=== PATIENT | female | born 1985 | race Caucasian/White ===

== ENCOUNTER 2016-09-16 04:22 | Emergency (ER) | payer OTHER ==
[~2016-09-16] VITALS: Ht 180.3 cm; Wt 70.3 kg
[~2016-09-16 04:22] MED LIST: CLARITIN10 MG PO; EFFEXOR XR75 MG PO; LOMOTIL 0.025 M1 TAB PO; OMNICEF300 MG PO; PRE NATAL PO; PRENATAL1 TA1 PO; SINGULAIR10 M1 PO; TRAMADOL HCL50 MG PO; ZANTAC150 MG PO; Zofran4 MG PO
[2016-09-16] MEDS ORDERED: ALLEGRA ALLERGY60 M2 PO (04:32)
[2016-09-16 04:51] LABS: BASO % 0.4 % (0.0-1.0); EOS # 0.1 10*3/uL (0.0-0.4); EOS % 0.8 % (1.0-4.0); HEMATOCRIT 41.9 % (37.0-47.0); HEMOGLOBIN 14.6 g/dl (12.0-16.0); LYMPH # 1.4 10*3/uL (1.3-4.4); MEAN CELL VOLUME 88.6 fl (81.0-99.0); MEAN CORPUSCULAR HGB 30.9 pg (27.0-31.0); MEAN CORPUSCULAR HGB CONC 34.8 g/dl (33.0-37.0); MEAN PLATELET VOLUME 9.6 fl (9.6-12.3); MONO # 0.4 10*3/uL (0.1-1.0); MONO % 4.7 % (3.0-9.0); NEUT # 7.3 10*3/uL (2.3-7.9); NEUT % 78.9 % (47.0-73.0); PLATELET COUNT AUTOMATED 177 10*3/uL (130-400); RED BLOOD COUNT 4.73 10*6/uL (4.10-5.10); RED CELL DISTRI WIDTH 11.9 % (0-14.5); WHITE BLOOD COUNT 9.2 10*3/uL (4.8-10.8)
[2016-09-16 05:06] LABS: ALBUMIN 4.2 gm/dl (3.1-4.5); ALKALINE PHOSPHATASE 64 U/L (45-117); BILIRUBIN, TOTAL 0.3 mg/dl (0.2-1.0); BUN 13 mg/dl (7-24); CARBON DIOXIDE 25 mmol/L (21-32); CHLORIDE 108 mmol/L (98-107); EST GLOM FILT AFRICAN AMERICAN > 60 ml/min; GLUCOSE 85 mg/dL (65-99); POTASSIUM 4.1 mmol/L (3.5-5.1); SGOT/AST 19 IU/L (3-35); SGPT/ALT 23 U/L (12-78); SODIUM 143 mmol/L (136-145); TOTAL PROTEIN 7.4 gm/dL (6.4-8.2)
[2016-09-16 05:25] LABS: BILIRUBIN NEGATIVE (NEGATIVE); BLOOD NEGATIVE (NEGATIVE); CLARITY CLEAR (CLEAR); COLOR YELLOW (YELLOW); GLUCOSE NEGATIVE (NEGATIVE); KETONE NEGATIVE (NEGATIVE); LEUKO ESTERASE NEGATIVE (NEGATIVE); NITRITE NEGATIVE (NEGATIVE); PH 6.5 (5.0-9.0); PROTEIN NEGATIVE (NEGATIVE); SPECIFIC GRAVITY 1.015 (1.005-1.030); UROBILINOGEN 0.2 E.U./dl (0.2-1.0)
[2016-09-16 06:02] LABS: RBC 0-2 rbc/hpf (0-2); URINE REFLEX COMMENT NO (NO); WBC 0-2 wbc/hpf (0-5)
[2016-09-16] MEDS ORDERED: Zofran4 MG PO (06:25)
== END 2016-09-16 06:42 | disposition home or self-care (01) ==
LOC: ED 04:22
PROVIDERS: Emergency Medicine
DX: K52.9 Noninfective gastroenteritis and colitis, unspecified (principal); Z91.030 Bee allergy status; Z79.899 Other long term (current) drug therapy

== ENCOUNTER 2016-09-17 00:08 | Inpatient (IN) | payer OTHER ==
[~2016-09-17] VITALS: Ht 182.8 cm; Wt 69.9 kg
--- NOTE | ~2016-09-17 | O ---
[place], [place] OPERATIVE NOTE [facility]: [id number] UN[facility] #: [id number] ROOM: 512 DOCTOR: LATOYA MARTE,MOY BIRTHDATE: [birth year] DOS: INDICATIONS: This is a 30-year-old patient who has presented nausea, vomiting undergoing investigation. The patient consultation has been in detail dictated. Labs and records have been reviewed. CT scan of the abdomen has been unremarkable. test has been negative. PROCEDURE: Today's procedure part of investigation is panendoscopy plus biopsy. PREMEDICATION: Versed and Diprivan. SCOPE: Olympus forward-viewing gastroscope Q10 video. REPORT: After putting the patient in the left lateral position and after application of lubricant to the scope, the scope was introduced; thereafter, under direct visualization, advanced through the length of esophagus without difficulty. Gastric pouch was entered. Gastritis was seen. Thick bilious matter in the copious volume in the gastric pouch was noticed. Meticulously all the bile was suctioned out to prevent aspiration. Duodenal bulb, second and third part within normal limits. Antrum was biopsied. The patient extubated, tolerated procedure well. IMPRESSION: Bile reflux gastritis. PLAN AND DISCUSSION: I am going to give her a dose of Reglan 5 mg b.i.d. today and we are going to continue with Protonix IV 40 mg b.i.d. I have reassessed the CT scan readings which has been without contrast, liver, spleen, pancreas and adrenal glands, kidneys all have been reported benign, gallbladder images is unremarkable. I am going to organize a sonographic study of the gallbladder again and clinical reassessment. Drug screening has been negative. Workup in progress. MOY KLEIN MD CM:OPRECORD:OPERATIVE NOTE [id number] MOY KLEIN MD 09/18/161953 interface
--- NOTE | ~2016-09-17 | CON ---
[place], [place] REPORT OF CONSULTATION NAME[facility]: [id number] UNIT #: [id number] ROOM: 512 DOCTOR: MOY KLEIN MD BIRTHDATE: [birth year] DOS: 09/18/2016 HISTORY OF PRESENT ILLNESS: A 30-year-old patient who has presented with chief complaint of relentless nausea, vomiting, unable to eat anything for the past 3 days or drink anything since 3 days ago. I have been asked for assessment of the patient regarding nausea, vomiting, relentless status. CBC: White blood cell was 9, H and H was 14 and 41, differential. Comprehensive metabolic panel, GFR greater than 60. Electrolytes balanced. Liver function test normal. Urinalysis unremarkable. CT scan of the abdomen and pelvis, no acute evidence of pathology. CBC, differential was reassessed. Comprehensive reassessed. Beta hCG negative. Comprehensive metabolic panel was reevaluated and thyroid status normal. Liver function tests remain normal. Phosphorus has dropped yesterday to 1.3. . PAST MEDICAL HISTORY: Associated with gastroenteritis, abdominal pain, intractable nausea, vomiting. PAST SURGICAL HISTORY: Otherwise, knee. SOCIAL HISTORY: Smoker, nonalcohol consumer. FAMILY HISTORY: Noncontributory. ALLERGIES: BEE STINGS. MEDICATIONS: List has been reviewed, Singulair, Zofran, Effexor, Carrie. REVIEW OF SYSTEMS: HEENT: Denies double vision, blurred vision. RESPIRATORY: Denies shortness of breath. CARDIOVASCULAR: Denies chest pain. DIGESTIVE SYSTEM: Relentless nausea, vomiting. PHYSICAL EXAMINATION: VITAL SIGNS: Stable. HEENT: Head normocephalic, nontraumatic. Eyes: Pupils round, reactive. Sclerae nonicteric. Conjunctivae pink. Nose: Nonobstructed, nondeviated. Mouth free of aphthae, ulcer, thrush. NECK: Supple, no thyromegaly, no cervical lymphadenopathy. CHEST: Symmetric anatomy, equal expansion. No wheeze. No rhonchi. HEART: Normal sinus rhythm, no gallop, no murmur. ABDOMEN: Soft. No hepato-organomegaly. Bowel sounds present. No pulsatile mass. EXTREMITIES: No cyanosis, no pedal edema. NEUROLOGIC: Alert, oriented to time, place and person. Labs reviewed. Records reviewed. X-rays reviewed. IMPRESSION: Relentless nausea, vomiting, depression, history of abdominal pain, hypophosphatemia, status post K-Phos infusion. [place], [place] REPORT OF CONSULTATION NAME: ALFONSO ALFREDO UNIT #: [id number] ROOM: [facility] DOCTOR: MOY KLEIN MD BIRTHDATE: [birth year] PLAN AND DISCUSSION: We are going to endoscopically assess the upper GI tract for ruling out the etiology of relentless nausea, vomiting. Thank you very much indeed. MOY KLEIN MD CM:CONSTR:REPORT OF CONSULTATION 1727 09/19/16 0842 interface
--- NOTE | ~2016-09-17 | O ---
[place], [place] OPERATIVE NOTE NAME: ALFONSO ALFREDO [facility] #: [id number] UNIT #: [id number] ROOM: 512 DOCTOR: JOHN LEONARD MD BIRTHDATE: [birth year] DOS: 09/22/2016 PREOPERATIVE DIAGNOSIS: Biliary dyskinesia. POSTOPERATIVE DIAGNOSIS: Biliary dyskinesia. PROCEDURE: Laparoscopic cholecystectomy. SURGEON: John Leonard MD RAW STOCK MACHINE LOADER: MS3. ANESTHESIA: General with endotracheal intubation. INDICATIONS: This is a 30-year-old lady with a history of epigastric pain, nausea and vomiting, who was found to have biliary dyskinesia on HIDA scan. It was decided to take the patient to the operating room for a laparoscopic possible open cholecystectomy. The procedure and its complications were explained to the patient in detail preoperatively. Complications that were discussed included but were not limited to bleeding, infection, hematoma/seroma/abscess formation, biloma formation, prolonged postoperative pain, damage to underlying vital structures, incisional hernia formation and injury to the common bile duct. She agreed to proceed. DESCRIPTION OF PROCEDURE: After identifying the patient, the patient was brought to the operating suite and laid in the supine position. After induction of general anesthesia, timeout procedure was called and the parts were then painted and draped in the usual sterile fashion. An incision in a subumbilical fashion was made in a transverse direction. The skin and the subcutaneous tissue were incised. The fascia was incised and 2 stay sutures were taken. The peritoneum was opened and a 12 mm Larry port was introduced. Under direct vision, an epigastric incision of 10 mm and two 5 mm incisions were made in the right upper quadrant and appropriate size ports were introduced. The gallbladder was retracted superiorly and laterally. The cystic duct and the cystic artery were carefully dissected until the critical view of safety was obtained and then triangle of Calot was identified. Thereafter, each of these structures were clipped 3 times and cut between the first and the second clip. The gallbladder was then removed from the bed of the gallbladder with the help of electrocautery. It was placed in an EndoCatch bag and removed from the peritoneal cavity and sent for histopathological diagnosis. Thereafter, hemostasis was achieved in the liver bed and under direct vision, the right upper quadrant and the epigastric ports were removed and there was no bleeding seen. The umbilical port was also removed and the 2 stay sutures were tied together. An additional 0 Vicryl suture was taken to close the fascia. Thereafter, the edges of the skin were approximated with the help of 4-0 Vicryl in a subcuticular running fashion after they were infiltrated with 1% plain lidocaine. Dressings were given to all the 4 incisions. The patient tolerated the procedure well and was extubated uneventfully and brought back to the recovery room in stable fashion. There were no complications. Dr. John Leonard, the attending surgeon, was present throughout the operating case. [place], [place] OPERATIVE NOTE NAME: ALFONSO ALFREDO [place] UNIT #: [id number] ROOM: [facility] DOCTOR: JOHN LEONARD MD BIRTHDATE: [birth year] John Leonard MD CM:OPRECORD:OPERATIVE NOTE [id number] JOHN LEONARD MD 09/22/161829 interface
[~2016-09-17 00:08] MED LIST changes: +ALLEGRA ALLERGY60 M2 PO
[2016-09-17 00:11] VITALS: BP 135/85
[2016-09-17 00:50] LABS: BASO % 0.4 % (0.0-1.0); EOS # 0.1 10*3/uL (0.0-0.4); EOS % 0.7 % (1.0-4.0); HEMATOCRIT 43.3 % (37.0-47.0); LYMPH # 1.4 10*3/uL (1.3-4.4); LYMPH % 16.9 % (27.0-41.0); MEAN CORPUSCULAR HGB 30.5 pg (27.0-31.0); MEAN CORPUSCULAR HGB CONC 34.6 g/dl (33.0-37.0); MEAN PLATELET VOLUME 9.6 fl (9.6-12.3); MONO # 0.4 10*3/uL (0.1-1.0); MONO % 4.9 % (3.0-9.0); NEUT # 6.3 10*3/uL (2.3-7.9); NEUT % 76.9 % (47.0-73.0); PLATELET COUNT AUTOMATED 208 10*3/uL (130-400); RED BLOOD COUNT 4.92 10*6/uL (4.10-5.10); RED CELL DISTRI WIDTH 11.9 % (0-14.5); WHITE BLOOD COUNT 8.2 10*3/uL (4.8-10.8)
[2016-09-17 01:03] LABS: ALBUMIN 4.2 gm/dl (3.1-4.5); ALKALINE PHOSPHATASE 56 U/L (45-117); BILIRUBIN, TOTAL 0.6 mg/dl (0.2-1.0); BUN 6 mg/dl (7-24); CARBON DIOXIDE 24 mmol/L (21-32); CHLORIDE 109 mmol/L (98-107); EST GLOM FILT AFRICAN AMERICAN > 60 ml/min; GLUCOSE 122 mg/dL (65-99); POTASSIUM 3.9 mmol/L (3.5-5.1); SGOT/AST 12 IU/L (3-35); SGPT/ALT 20 U/L (12-78); SODIUM 140 mmol/L (136-145); TOTAL PROTEIN 7.3 gm/dL (6.4-8.2)
[2016-09-17 02:45] VITALS: BP 109/65
[2016-09-17 06:24] LABS: BASO % 0.2 % (0.0-1.0); EOS % 0.2 % (1.0-4.0); HEMOGLOBIN 14.1 g/dl (12.0-16.0); LYMPH # 0.6 10*3/uL (1.3-4.4); LYMPH % 8.6 % (27.0-41.0); MEAN CELL VOLUME 89.6 fl (81.0-99.0); MEAN CORPUSCULAR HGB 30.1 pg (27.0-31.0); MEAN CORPUSCULAR HGB CONC 33.6 g/dl (33.0-37.0); MONO # 0.1 10*3/uL (0.1-1.0); MONO % 1.7 % (3.0-9.0); NEUT # 5.7 10*3/uL (2.3-7.9); NEUT % 89.1 % (47.0-73.0); PLATELET COUNT AUTOMATED 187 10*3/uL (130-400); RED BLOOD COUNT 4.69 10*6/uL (4.10-5.10); RED CELL DISTRI WIDTH 11.9 % (0-14.5); WHITE BLOOD COUNT 6.4 10*3/uL (4.8-10.8)
[2016-09-17 06:32] LABS: URINE AMPHETAMINES < 1000 (1000ng/ml); URINE BARBITURATES < 200 (200ng/ml); URINE COCAINE < 300 (300ng/ml)
[2016-09-17 06:59] LABS: HEMOGLOBIN A1c 4.8 % (4.8-5.6)
[2016-09-17 07:00] LABS: ALBUMIN 4.1 gm/dl (3.1-4.5); BUN 7 mg/dl (7-24); CARBON DIOXIDE 24 mmol/L (21-32); CHLORIDE 110 mmol/L (98-107); GLUCOSE 121 mg/dL (65-99); MAGNESIUM 1.9 mg/dL (1.5-2.1); POTASSIUM 3.6 mmol/L (3.5-5.1); SODIUM 144 mmol/L (136-145)
[2016-09-17 07:06] LABS: ALKALINE PHOSPHATASE 55 U/L (45-117); BILIRUBIN, TOTAL 0.6 mg/dl (0.2-1.0); CHOLESTEROL 128 mg/dL (<200); EST GLOM FILT AFRICAN AMERICAN > 60 ml/min; FREE T4 1.05 ng/dl (0.76-1.46); HDL CHOLESTEROL 66 mg/dl (40-60); LDL CHOLESTEROL 54 mg/dL (9-159); PHOSPHOROUS 1.3 mg/dL (2.5-4.9); SGOT/AST 12 IU/L (3-35); SGPT/ALT 22 U/L (12-78); THYROID STIM HORMONE (HS) 0.694 uIU/ml (0.358-4.75); TOTAL PROTEIN 7.2 gm/dL (6.4-8.2); TRIGLYCERIDES 40 mg/dl (<150); VLDL CHOLESTEROL 8 mg/dL (6-40)
[2016-09-17 08:00] VITALS: BP 122/78
[2016-09-17 09:13] LABS: VITAMIN D, 25-HYDROXY 38.2 ng/mL (30-100)
[2016-09-17 09:15] LABS: FOLIC ACID > 24.00 ng/mL (>5.38)
[2016-09-17 12:00] VITALS: BP 100/68
[2016-09-17 16:00] VITALS: BP 110/59
[2016-09-17 20:00] VITALS: BP 109/64
[2016-09-18] VITALS (9 sets, daily range): BP systolic 110–131; BP diastolic 56–91
[2016-09-19] VITALS: BP 126/87
[2016-09-19 06:41] LABS: BASO % 0.2 % (0.0-1.0); EOS % 0.2 % (1.0-4.0); HEMOGLOBIN 12.3 g/dl (12.0-16.0); LYMPH # 1.6 10*3/uL (1.3-4.4); LYMPH % 19.5 % (27.0-41.0); MEAN CELL VOLUME 87.5 fl (81.0-99.0); MEAN CORPUSCULAR HGB 30.8 pg (27.0-31.0); MEAN CORPUSCULAR HGB CONC 35.1 g/dl (33.0-37.0); MEAN PLATELET VOLUME 9.8 fl (9.6-12.3); MONO # 0.6 10*3/uL (0.1-1.0); MONO % 7.2 % (3.0-9.0); NEUT # 6.1 10*3/uL (2.3-7.9); NEUT % 72.4 % (47.0-73.0); PLATELET COUNT AUTOMATED 132 10*3/uL (130-400); RED CELL DISTRI WIDTH 11.6 % (0-14.5); WHITE BLOOD COUNT 8.4 10*3/uL (4.8-10.8)
[2016-09-19 07:14] LABS: BUN 10 mg/dl (7-24); CARBON DIOXIDE 25 mmol/L (21-32); CHLORIDE 109 mmol/L (98-107); EST GLOM FILT AFRICAN AMERICAN > 60 ml/min; GLUCOSE 86 mg/dL (65-99); POTASSIUM 3.4 mmol/L (3.5-5.1); SODIUM 144 mmol/L (136-145)
[2016-09-19 08:00] VITALS: BP 116/76
[2016-09-19 12:00] VITALS: BP 128/86
[2016-09-19 16:00] VITALS: BP 130/76
[2016-09-19 20:00] VITALS: BP 136/94
[2016-09-20] VITALS: BP 120/82
[2016-09-20 08:00] VITALS: BP 118/76
[2016-09-20 12:00] VITALS: BP 126/89
[2016-09-20 16:00] VITALS: BP 135/89
[2016-09-20 20:00] VITALS: BP 138/93
[2016-09-21] VITALS: BP 123/75
[2016-09-21 06:41] LABS: BASO % 0.5 % (0.0-1.0); EOS % 0.3 % (1.0-4.0); HEMATOCRIT 35.9 % (37.0-47.0); HEMOGLOBIN 13.1 g/dl (12.0-16.0); LYMPH # 1.2 10*3/uL (1.3-4.4); LYMPH % 19.9 % (27.0-41.0); MEAN CELL VOLUME 84.7 fl (81.0-99.0); MEAN CORPUSCULAR HGB 30.9 pg (27.0-31.0); MEAN CORPUSCULAR HGB CONC 36.5 g/dl (33.0-37.0); MEAN PLATELET VOLUME 10.4 fl (9.6-12.3); MONO # 0.5 10*3/uL (0.1-1.0); MONO % 7.6 % (3.0-9.0); NEUT # 4.3 10*3/uL (2.3-7.9); NEUT % 71.4 % (47.0-73.0); PLATELET COUNT AUTOMATED 116 10*3/uL (130-400); RED BLOOD COUNT 4.24 10*6/uL (4.10-5.10); RED CELL DISTRI WIDTH 11.6 % (0-14.5)
[2016-09-21 06:53] LABS: EST GLOM FILT AFRICAN AMERICAN > 60 ml/min
[2016-09-21 08:00] VITALS: BP 124/85
[2016-09-21 13:51] LABS: BUN 10 mg/dl (7-24); CARBON DIOXIDE 25 mmol/L (21-32); CHLORIDE 101 mmol/L (98-107); EST GLOM FILT AFRICAN AMERICAN > 60 ml/min; GLUCOSE 88 mg/dL (65-99); PHOSPHOROUS 2.6 mg/dL (2.5-4.9); POTASSIUM 3.1 mmol/L (3.5-5.1); SODIUM 136 mmol/L (136-145)
[2016-09-21 16:00] VITALS: BP 122/80
[2016-09-21 20:00] VITALS: BP 120/82
[2016-09-22] VITALS (10 sets, daily range): BP systolic 108–137; BP diastolic 60–96
[2016-09-22 06:39] LABS: BASO % 0.7 % (0.0-1.0); EOS # 0.1 10*3/uL (0.0-0.4); EOS % 1.7 % (1.0-4.0); HEMATOCRIT 35.3 % (37.0-47.0); HEMOGLOBIN 12.6 g/dl (12.0-16.0); LYMPH # 1.8 10*3/uL (1.3-4.4); LYMPH % 31.1 % (27.0-41.0); MEAN CELL VOLUME 85.9 fl (81.0-99.0); MEAN CORPUSCULAR HGB 30.7 pg (27.0-31.0); MEAN CORPUSCULAR HGB CONC 35.7 g/dl (33.0-37.0); MEAN PLATELET VOLUME 9.6 fl (9.6-12.3); MONO # 0.5 10*3/uL (0.1-1.0); MONO % 7.8 % (3.0-9.0); NEUT # 3.4 10*3/uL (2.3-7.9); NEUT % 58.4 % (47.0-73.0); RED BLOOD COUNT 4.11 10*6/uL (4.10-5.10); RED CELL DISTRI WIDTH 11.7 % (0-14.5); WHITE BLOOD COUNT 5.9 10*3/uL (4.8-10.8)
[2016-09-22 06:46] LABS: PLATELET COUNT AUTOMATED 156 10*3/uL (130-400)
[2016-09-22 07:07] LABS: BUN 12 mg/dl (7-24); CARBON DIOXIDE 26 mmol/L (21-32); CHLORIDE 106 mmol/L (98-107); EST GLOM FILT AFRICAN AMERICAN > 60 ml/min; GLUCOSE 85 mg/dL (65-99); POTASSIUM 3.5 mmol/L (3.5-5.1); SODIUM 143 mmol/L (136-145)
[2016-09-23] VITALS: BP 108/66
[2016-09-23 08:00] VITALS: BP 108/74
[2016-09-23] MEDS ORDERED: PROTONIX40 MG/PACK PO (10:58)
== END 2016-09-23 10:18 | disposition home or self-care (01) | DRG 358 ==
LOC: ED 00:08 → EDHOLD 01:09 → 5E 01:09
PROVIDERS: Internal Medicine; Registered Nurse
PROC: 0DB68ZX Excision of Stomach, Via Natural or Artificial Opening Endoscopic, Diagnostic (ICD-10-PCS; principal; 2016-09-18)
PROC: 0FT44ZZ Resection of Gallbladder, Percutaneous Endoscopic Approach (ICD-10-PCS; 2016-09-22)
DX: K29.60 Other gastritis without bleeding (principal); E83.39 Other disorders of phosphorus metabolism; K31.89 Other diseases of stomach and duodenum; K82.8 Other specified diseases of gallbladder; E87.6 Hypokalemia; F32.9 Major depressive disorder, single episode, unspecified; J30.2 Other seasonal allergic rhinitis; Z81.8 Family history of other mental and behavioral disorders; Z79.899 Other long term (current) drug therapy; Z91.030 Bee allergy status

== ENCOUNTER → 2016-09-26 | Outpatient (CLI) | payer OTHER ==
[~2016-09-26] MED LIST changes: +PROTONIX40 MG/PACK PO
== END | disposition home or self-care (01) ==
LOC: RESCLI 09:59
DX: F41.9 Anxiety disorder, unspecified (principal); J30.89 Other allergic rhinitis; Z90.49 Acquired absence of other specified parts of digestive tract; Z76.89 Persons encountering health services in other specified circumstances

== ENCOUNTER 2024-02-26 18:39 | Emergency (ER) | payer OTHER ==
[~2024-02-26] VITALS: Ht 180.3 cm; Wt 70.3 kg
[2024-02-26] MEDS ORDERED: CYMBALTA60 MG PO (18:53)
[2024-02-26] MEDS ORDERED: BUSPAR5 MG PO (18:54)
[2024-02-26 19:41] LABS: BASO % 0.5 % (0.0-1.0); EOS # 0.1 10*3/uL (0.0-0.4); LYMPH # 1.4 10*3/uL (1.3-4.4); LYMPH % 34.7 % (27.0-41.0); MEAN CORPUSCULAR HGB 30.5 pg (27.0-31.0); MEAN CORPUSCULAR HGB CONC 33.9 g/dl (33.0-37.0); MEAN PLATELET VOLUME 9.2 fl (9.6-12.3); MONO # 0.5 10*3/uL (0.1-1.0); MONO % 11.6 % (3.0-9.0); PLATELET COUNT AUTOMATED 159 10*3/uL (130-400); RED BLOOD COUNT 5.11 10*6/uL (4.10-5.10); RED CELL DISTRI WIDTH 11.8 % (0-14.5)
[2024-02-26 20:02] LABS: ALKALINE PHOSPHATASE 78 U/L (46-116); BUN 15 mg/dl (9-23); CHLORIDE 104 mmol/L (98-107); LIPASE 33 U/L (12-53); POTASSIUM 3.4 mmol/L (3.4-5.1); SGPT/ALT 23 U/L (5-49); TOTAL PROTEIN 7.5 gm/dL (6.0-8.0)
[2024-02-26 20:48] LABS: BILIRUBIN Negative (Negative); BLOOD Negative (Negative); CLARITY Clear (Clear); COLOR Yellow (Yellow); GLUCOSE Negative (Negative); KETONE Trace (Negative); LEUKO ESTERASE Negative (Negative); NITRITE Negative (Negative); SPECIFIC GRAVITY 1.025 (1.001-1.030)
[2024-02-26 20:59] LABS: BACTERIA TRACE; CALCIUM OXALATE CRYSTALS Trace; RBC 0-2 rbc/hpf (0-2); WBC 0-2 wbc/hpf (0-5)
[2024-02-26] MEDS ORDERED: Ondansetron Hydrochloride 4 MG TAB SL ONE (21:15)
[2024-02-26] MEDS ORDERED: methylPREDNISolone sod succ 125 MG VIAL IM ONE (21:15)
[2024-02-26] MEDS ORDERED: Ondansetron4 MG PO (21:20)
[2024-02-26] MEDS ORDERED: PREDNISONE20 M1 PO (21:20)
== END 2024-02-26 21:46 | disposition home or self-care (01) ==
LOC: ED 18:39
PROVIDERS: Internal Medicine
DX: J20.8 Acute bronchitis due to other specified organisms (principal); B34.9 Viral infection, unspecified; R11.2 Nausea with vomiting, unspecified; F41.9 Anxiety disorder, unspecified; F32.A Depression, unspecified; F17.210 Nicotine dependence, cigarettes, uncomplicated; Z91.030 Bee allergy status; Z88.8 Allergy status to other drugs, medicaments and biological substances; Z98.890 Other specified postprocedural states